=== PATIENT | female | born 1995 | race Two or more races ===

== ENCOUNTER 2019-01-28 07:04 | Emergency (ER) ==
[~2019-01-28] VITALS: Ht 167.6 cm; Wt 59.4 kg
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
--- NOTE | 2019-01-28 07:40 | NUR ---
PATIENT SEEN AND EXAMINED BY DR. RUIZ, RECEIVED ORDERS. IV LINE ESTABLISHED ON LEFT AC.
[2019-01-28] MEDS ORDERED: ACETAMINOPHEN ES 500 MG TABLET ONE (07:45)
[2019-01-28 07:50] LABS: BASOPHILS % (AUTO) 0.5 % (0.0-2.0); EOSINOPHILS % (AUTO) 1.3 % (0.0-6.0); HEMATOCRIT 36 % (33-45); HEMOGLOBIN 12.2 g/dL (11.5-14.8); LYMPHOCYTES # (AUTO) 2.2 /CMM (0.8-4.8); LYMPHOCYTES % (AUTO) 25.6 % (20.0-44.0); MEAN CORPUSCULAR HGB CONC 34 g/dl (31.0-36.0); MEAN CORPUSCULAR VOLUME 79 fL (82-100); MONOCYTES # (AUTO) 0.6 /CMM (0.1-1.30); MONOCYTES % (AUTO) 6.9 % (2.0-12.0); NEUTROPHILS # (AUTO) 5.8 /CMM (1.8-8.9); NEUTROPHILS % (AUTO) 65.7 % (43.0-81.0); PLATELET COUNT (AUTO) 270 /CMM (150-450); RED BLOOD CELL COUNT(AUTO) 4.56 MIL/uL (4.0-5.2); WHITE BLOOD COUNT (AUTO) 8.8 K/uL (4.3-11.0)
[2019-01-28 07:57] LABS: CALCIUM, SERUM 9.3 mg/dL (8.5-10.1); CREATININE 0.8 mg/dL (0.6-1.3); POTASSIUM 3.6 mmol/L (3.5-5.1)
[2019-01-28] MEDS ORDERED: ACETAMINOPHEN ES 500 MG TABLET PO ONE (08:00)
[2019-01-28 08:03] LABS: ALBUMIN 4.1 g/dL (3.4-5.0); BILIRUBIN,DIRECT 0.1 mg/dL (0.0-0.2); BILIRUBIN,TOTAL 0.4 mg/dL (0.2-1.0); TOTAL PROTEIN, SERUM 7.4 g/dL (6.4-8.2)
--- NOTE | 2019-01-28 08:20 | NUR ---
PATIENT SIGNED A WAIVER, [facility] MADE AWARE, PATIENT TAKEN TO CT.
[2019-01-28] MEDS ORDERED: predniSONE 20 MG TABLET PO ONE (09:00)
[2019-01-28] MEDS ORDERED: FAMOTIDINE (20 MG) 20 MG TABLET PO ONE (09:00)
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
--- NOTE | 2019-01-28 11:24 | NUR ---
[employer] CAME AND 2 POLICE OFFICERS SPOKE WITH THE PATIENT, OFFICER NADEEN [id number], AND OFFICER CHANDA [id number].
--- NOTE | 2019-01-28 12:45 | NUR ---
PATIENT A/OX4, INSTRUCTED PATIENT NOT TO DRIVE, PER PATIENT SHE'LL TAKE THE BUS TO GET HOME, PATIENT AMBULATES INDEPENDENTLY, NAD, PIV REMOVED, DISCHARGE INSTRUCTIONS PROVIDED AND VERBALIZED UNDERSTANDING. PATIENT GIVEN TAP CARD.
[2019-01-28 13:02] VITALS: BP 117/68
== END 2019-01-28 13:04 | disposition home or self-care (01) ==
LOC: ER 07:09
DX: R56.9 Unspecified convulsions (principal); M25.521 Pain in right elbow; M25.531 Pain in right wrist; M25.561 Pain in right knee
CPT/HCPCS: 36415; 70450-TC; 70486-TC; 73080-TC; 73110; 73560-TC; 73590-TC; 80048-TC; 80076-TC; 85025-TC

== ENCOUNTER 2024-09-16 20:51 | Emergency (ER) | payer OTHER ==
[~2024-09-16] VITALS: Ht 175.3 cm; Wt 65.8 kg
[2024-09-16] MEDS: ACETAMINOPHEN 325 MG TABLET PO ONE (22:30)
[2024-09-16] MEDS ORDERED: ACETAMINOPHEN 325 MG TABLET ONE (22:47)
[2024-09-17 00:05] VITALS: BP 133/79; TEMP 98.7; O2SAT 100
== END 2024-09-17 00:07 ==
LOC: ER 20:54
DX: S09.90XA Unspecified injury of head, initial encounter (principal); Z02.89 Encounter for other administrative examinations; Z65.3 Problems related to other legal circumstances; Y08.89XA Assault by other specified means, initial encounter; Y93.89 Activity, other specified; Y92.89 Other specified places as the place of occurrence of the external cause; Y99.8 Other external cause status
CPT/HCPCS: 70450-TC; 72125-TC